=== PATIENT | female | born 1965 | race Caucasian/White ===

== ENCOUNTER 2023-03-06 08:23 | Emergency (ER) | payer OTHER, SELFPAY ==
[2023-03-06 08:41] VITALS: BP 135/78; PULSE 83; RESP 18; TEMP 36.9; O2SAT 98
--- NOTE | 2023-03-06 08:50 | ED.GENADULT ---
HPI - General Adult General Chief complaint: Upper Respiratory Infection Stated complaint: poss sinus infection Source: patient, RN notes reviewed and old records reviewed Mode of arrival: ambulatory Limitations: no limitations History of Present Illness HPI narrative: 57-year-old female presents to [facility] with complaints sinus congestion, sinus pain, cough this started approximately 6 weeks ago. Patient taking [id number]-[id number] medications with no relief. Patient has call primary care physician but cannot get in. Patient denies weakness, dizziness, shortness of breath, vomiting. patient states has multiple at home covid test that were all negative. MD complaint: sinus congestion Onset (ago): week(s) (6) Related Data Home Medications Medication Instructions Recorded Confirmed amlodipine 5 mg tablet 5 mg PO DAILY 03/06/23 03/06/23 cholecalciferol (vitamin D3) 25 25 mcg PO DAILY 03/06/23 03/06/23 mcg (1,000 unit) tablet pantoprazole 40 mg tablet,delayed 40 mg PO DAILY 03/06/23 03/06/23 release Allergies Allergy/AdvReac Type Severity Reaction Status Date / Time No Known Allergies Allergy Unverified 11/16/15 11:35 Review of Systems Constitutional: Constitutional: Reports no additional constitutional complaints, Denies body ache(s), Denies chills, Denies fatigue, Denies fever(s) and Reports headache(s) Eyes: Eyes: Reports no additional eye complaints and Denies blurry vision ENT: Reports system reviewed and no additional complaints, except as documented, Denies vertigo, Denies dizziness, Denies ear discharge, Denies otalgia, Denies facial pain, Reports headache(s), Reports nasal congestion, Reports nasal discharge, Reports sinus pain, Reports sinus pressure and Denies sore throat Cardiovascular: Cardiovascular: Reports no additional cardiovascular complaints, Denies chest pain, Denies chest pain at rest, Denies rapid heart rate and Denies dyspnea Respiratory: Respiratory: Reports no additional respiratory complaints, Denies chest congestion, Reports cough, Denies pain on inspiration, Denies pain with cough and Denies dyspnea Gastrointestinal: Gastrointestinal: Denies abdominal pain, Denies diarrhea, Denies nausea and Denies vomiting Integumentary/Breasts: Skin/Breast: Denies rash Neurologic: Reports system reviewed and no additional complaints, except as documented, Denies vertigo, Denies dizziness and Denies headache(s) Endocrine: Endocrine: Denies fatigue PMFSH Comments At the time of my signature, I reviewed and agree with the nursing past medical, surgical, social, and family history. There is no relevant family history pertinent to the patient complaint. Exam Const: General: cooperative, healthy appearing, no acute distress and well nourished Nutritional Appearance: well nourished Orientation/consciousness: patient oriented x3 Limitations: no limitations HENMT: Head: normal to inspection and normocephalic Ears: external ears normal, TM's normal bilaterally, mastoids normal and Abnormal EAC present Face/Nose/Sinus: Abnormal mucous membranes and turbinates present boggy and erythematous, Nasal discharge present purulent, sinus tenderness and Facial tenderness on exam of face and sinuses Face and sinus: abnormal transillumination of sinuses and sinus tenderness maxillary Mouth: Yes Normal oral and palatal mucosa present, Yes oropharynx normal and Yes moist mucous membranes Throat: tonsils normal, uvula midline, posterior oropharynx abnormal erythema and no uvular edema Eyes: General: appearance normal, both eyes and all related structures Sclera: sclerae normal Pupils: Equal, round and reactive pupils present Resp: Effort & Inspection: normal respiratory effort, able to speak in complete sentences, no audible wheezes, no cough, no respiratory distress and no retractions Auscultation: clear to auscultation bilaterally, no crackles, no rales, no rhonchi and no wheezes Cardio: Rate: regular rate Rhythm
== END 2023-03-06 09:01 | disposition home or self-care (01) ==
PROVIDERS: Emergency Provider Registered Nurse; PCP Family Medicine
DX: J01.90 Acute sinusitis, unspecified (principal)
CPT/HCPCS: 99203; G0463

== ENCOUNTER 2023-11-18 08:54 | Emergency (ER) | payer OTHER, SELFPAY ==
[2023-11-18 09:09] VITALS: BP 132/62; PULSE 75; RESP 16; TEMP 36.5; O2SAT 97
[2023-11-18 09:50] LABS: EDSTREPNEGPOS1 Negative (Negative)
--- NOTE | 2023-11-18 09:54 | ED.GENADULT ---
HPI - General Adult General Chief complaint: Upper Respiratory Infection Stated complaint: Headache/Sore Throat/Left Ear Pain Source: patient Mode of arrival: ambulatory Limitations: no limitations History of Present Illness HPI narrative: Patient presents for evaluation of sore throat and left-sided otalgia for the last 8 days. No fever, chills, nausea, vomiting or diarrhea, cough, shortness of breath. Her child and grandchild recently tested positive for strep. 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 She has been taking dayquil and nyquil for her symptoms. She does not smoke. Related Data Home Medications Medication Instructions Recorded Confirmed amlodipine 5 mg tablet 5 mg PO DAILY 03/06/23 03/06/23 cholecalciferol (vitamin D3) 25 25 mcg PO DAILY 03/06/23 03/06/23 mcg (1,000 unit) tablet pantoprazole 40 mg tablet,delayed 40 mg PO DAILY 03/06/23 03/06/23 release Allergies Allergy/AdvReac Type Severity Reaction Status Date / Time No Known Allergies Allergy Unverified 11/16/15 11:35 Review of Systems Review of Systems: CONSTITUTIONAL: Denies fever, chills, or sweats. EYES: Denies visual changes, redness, or discharge. ENT: Reports sore throat and left-sided otalgia. Denies rhinorrhea, congestion, sore throat, or otalgia. CARDIOVASCULAR: Denies chest pain, palpitations, or edema. RESPIRATORY: Denies cough or dyspnea. GASTROINTESTINAL: Denies abdominal pain, nausea, vomiting, or diarrhea. GENITOURINARY: Denies dysuria or hematuria. SKIN: Denies rash or itching. MUSCULOSKELETAL: Denies back pain, joint pain, or myalgia. NEUROLOGIC: Denies headache, numbness, dizziness, or weakness. PSYCHIATRIC: Denies anxiety or depression. [facility] [place] Past Medical History Medical History GERD (gastroesophageal reflux disease) Hypertension Vitamin D deficiency Surgical History Surgical History No pertinent past surgical history Family History Family History Mother Family history non-contributory Social History Social History Smoking status: Never smoker Substance use: never Living arrangements: with family Gender identity (if verbalized by the patient): Female Spiritual care concerns: No Exam Narrative: GENERAL: Well-appearing, well-nourished, and in no acute distress. HEAD: Normocephalic, atraumatic. EYES: PERRLA and EOMI. ENT: Nares clear, no rhinorrhea or epistaxis. Mucous membranes moist. His posterior pharyngeal erythema without exudate. Uvula is midline. Bilateral TMs pearly singleton nonbulging NECK: Supple. No adenopathy or masses. No carotid bruits or JVD CHEST: Clear to auscultation. No respiratory distress. No wheezes rales or rhonchi HEART: Regular rate and rhythm. No murmur heard. Normal peripheral pulses. ABDOMEN: Soft, nontender, nondistended, normal active bowel sounds. EXTREMITIES: Normal range of motion. No edema. SKIN: Warm, dry, no rash. NEURO: No focal deficits. Alert and oriented x3. PSYCH: Normal mood and affect. Course Course Emergency Course: This is a 58-year-old female who presented for evaluation of a sore throat. Rapid strep negative. Based upon multiple strep exposures will treat with amoxicillin. Increase hydration. [id number] agents for symptom management. Follow with primary provider. Go to the ER for worsening symptoms. Patient in agreement with plan of care Level of Care: Express Care Visit Vital Signs Vital signs: Vital Signs Temperature 36.5 C 11/18/23 09:09 Pulse Rate 75 11/18/23 09:09 Respiratory Rate 16 11/18/23 09:09 Blood Pressure 132/62 11/18/23 09:09 Pulse Oximetry 97 11/18/23 09:09 Oxygen Delivery Room Air 11/18/23 09:09 Temperature 36.5 C 11/18/23 09:09 Pulse Rate
== END 2023-11-18 10:01 | disposition home or self-care (01) ==
PROVIDERS: Emergency Provider Nurse Practitioner; PCP Family Medicine
DX: J02.9 Acute pharyngitis, unspecified (principal); Z20.818 Contact with and (suspected) exposure to other bacterial communicable diseases; K21.9 Gastro-esophageal reflux disease without esophagitis; I10 Essential (primary) hypertension; E55.9 Vitamin D deficiency, unspecified
CPT/HCPCS: 87081; 87880; 99213; G0463

== ENCOUNTER 2025-01-10 08:10 | Emergency (ER) | payer OTHER, SELFPAY ==
[2025-01-10 08:16] VITALS: BP 156/98; PULSE 70; RESP 20; TEMP 36.6; O2SAT 98
--- NOTE | 2025-01-10 08:44 | ED.URI ---
HPI - URI/Sore Throat General Chief Complaint: Upper Respiratory Infection Stated Complaint: Sinus Problem Time Seen by Provider: 01/10/25 08:30 Source: patient and RN notes reviewed Mode of arrival: ambulatory Limitations: no limitations History of Present Illness HPI Narrative: 59-year-old female patient presents to the [facility] complaining of upper respiratory symptoms for approximately 11 days. Patient reports cough, congestion, nasal drainage, sinus pressure, headaches that not gotten any better. Patient denies any difficulty breathing, chest pain, nausea vomiting, diarrhea, fevers, body aches, chills, any other upper respiratory symptoms, dizziness, lightheadedness, abdominal pain, or any other symptoms. Patient is taking DayQuil, NyQuil, Mucinex, Excedrin, and intermittent Afrin without relief. Patient denies any significant past medical problems. Related Data Home Medications ?Medication ?Instructions ?Recorded ?Confirmed ?Last Taken ?Type amlodipine 5 mg tablet 5 mg PO DAILY 03/06/23 03/06/23 Unknown History cholecalciferol (vitamin D3) 25 25 mcg PO DAILY 03/06/23 03/06/23 Unknown History mcg (1,000 unit) tablet pantoprazole 40 mg tablet,delayed 40 mg PO DAILY 03/06/23 03/06/23 Unknown History release Allergies Allergy/AdvReac Type Severity Reaction Status Date / Time No Known Allergies Allergy Verified 01/10/25 08:31 Review of Systems Review of Systems: CONSTITUTIONAL: Denies fever, body aches chills, or sweats. EYES: Denies visual changes, redness, or discharge. ENT: Denies rhinorrhea, sore throat, or otalgia. Positive for congestion, sinus pressure common nasal drainage. CARDIOVASCULAR: Denies chest pain, palpitations, dizziness, lightheadedness, or edema. RESPIRATORY: Positive for cough. Negative for wheezing or dyspnea. GASTROINTESTINAL: Denies abdominal pain, nausea, vomiting, or diarrhea. GENITOURINARY: Denies dysuria or hematuria. SKIN: Denies rash or itching. MUSCULOSKELETAL: Denies back pain, joint pain, or myalgia. NEUROLOGIC: Denies headache, numbness, or weakness. PSYCHIATRIC: Denies anxiety or depression. All other systems reviewed are negative, except as documented in HPI. [facility] Past Medical History Medical History Vitamin D deficiency GERD (gastroesophageal reflux disease) Hypertension Surgical History Surgical History No pertinent past surgical history Family History Family History Mother Family history non-contributory Social History Social History Smoking status: Never smoker Substance use: never Living arrangements: with family Gender identity (if verbalized by the patient): Female Spiritual care concerns: No Comments At the time of my signature, I reviewed and agree with the nursing past medical, surgical, social, and family history. There is no relevant family history pertinent to the patient complaint. Exam Narrative: GENERAL: This is a well-nourished, well-developed adult, in no apparent distress. They are non ill-appearing, nontoxic appearing. HEAD: normocephalic, atraumatic. EYES: Sclera clear/white. Conjunctiva normal. Vision is grossly intact. Extraocular movements intact EARS: External ears normal, auditory canals clear and without drainage, TMs normal without perforation. Hearing grossly intact. NOSE: External nose normal with no obvious nasal discharge, nasal turbinates erythematous, no rhinorrhea. Maxillary and frontal sinus tenderness to palpation. THROAT: Mucous membranes moist, posterior pharynx boggy without erythema. Uvula midline. Postnasal drip present. NECK: Neck supple, non-tender without lymphadenopathy, masses or thyromegaly. CARDIOVASCULAR: Regular rate and rhythm without murmurs, gallops, or rubs. RESPIRATORY: Clear to auscultation. Breath sounds equal bilaterally. No wheezes, rales, or rhonchi. SKIN: warm, Dry, intact with no suspicious lesions or rash, good texture and turgor. NEURO: awake, alert, and oriented to person, place and time. There were no obvious focal neurologic abnormalities. EXTREMITIES: No joint tenderness, effusion, or edema noted. BACK: Nontender without deformity. Course Course Emergency Course: Portions of this record may have been created with voice recognition software Level of Care: Express Care Visit Vital Signs Vital signs: Vital Signs Temperature 97.8 F 01/10/25 08:16 Pulse Rate 70 01/10/25 08:16 Respiratory Rate 20 01/10/25 08:16 Blood Pressure 156/98 H 01/10/25 08:16 Pulse Oximetry 98 01/10/25 08:16 Oxygen Delivery Room Air 01/10/25 08:16 Temperature 97.8 F 01/10/25 08:16 Pulse Rate 70 01/10/25 08:16 Respiratory Rate 20 01/10/25 08:16 Blood Pressure 156/98 H 01/10/25 08:16 Pulse Oximetry 98 01/10/25 08:16 Oxygen Delivery Room Air 01/10/25 08:16 Reviewed MDM - URI/Sore Throat MDM Narrative Medical decision making narrative: Given patient's length of symptoms likely she has developed a bacterial sinusitis. Will treat with Augmentin. Discussed supportive care. Discussed physical exam findings. Advised supportive measures and signs/symptoms to go to the ER. Pt is appropriate for outpt treatment and f/u. Differential Diagnosis Differential diagnosis: Likely upper respiratory infection, sinusitis, viral infection and bronchitis Critical Care Time Critical Care Time Critical Care Time: No Discharge Plan Discharge Clinical Impression: Sinusitis Qualifiers: Sinusitis location: unspecified location Chronicity: acute Recurrence: non-recurrent Qualified Code(s): J01.90 - Acute sinusitis, unspecified Patient Disposition: Home Condition: Stable Instructions: Antibiotic Form, Sinusitis (ED) Additional Instructions: Take the antibiotics as directed and complete the course even if you start to feel better. You may use a Neti pot saline rinse 3 times a day with lukewarm distilled water Continue to take Tylenol or Motrin for pain or fevers. Follow instructions on the bottle. Use a humidifier or vaporizer at night. Drink plenty of water. 8-10 glasses per day. Use flonase 2 times per day for 5 days then as needed Take mucinex 2 times per day and be sure to take with 8oz of water. Follow up with Primary provider in 3-5 days Please go to the ER if he develops any difficulty breathing, chest pains, vomiting, worsening symptoms, or any other serious concerns Patient Language: Iranian Prescriptions: New amoxicillin-pot clavulanate 875-125 mg tablet 1 tablet PO Q12H 7 Days Qty: 14 0RF No Action amlodipine 5 mg tablet 5 mg PO DAILY pantoprazole 40 mg tablet,delayed release (DR/EC) 40 mg PO DAILY cholecalciferol (vitamin D3) 25 mcg (1,000 unit) tablet 25 mcg PO DAILY Follow-up/Referrals: Haider,Elliot Bustamante MD [Primary Care Provider, Unknown] Time of Disposition: 08:41
== END 2025-01-10 08:44 | disposition home or self-care (01) ==
PROVIDERS: PCP Family Medicine
DX: J01.90 Acute sinusitis, unspecified (principal); I10 Essential (primary) hypertension; K21.9 Gastro-esophageal reflux disease without esophagitis; E55.9 Vitamin D deficiency, unspecified
CPT/HCPCS: 99213; G0463